=== PATIENT | male | born 1955 | race American Indian/Alaskan Native ===

== ENCOUNTER 2020-06-29 23:44 | Emergency (ER) | payer SELFPAY ==
[2020-06-30 00:02] VITALS: BP 180/106
--- NOTE | 2020-06-30 00:44 | XRay Report ---
CHEST 1 VIEW, 06/29/2020 11:32 PM CLINICAL INFORMATION/INDICATION: Chest pain COMPARISON: Chest radiograph, 04/26/2015 FINDINGS: SUPPORT DEVICES: None. HEART: There is stable mild enlargement of the cardiac silhouette LUNGS/PLEURA: Faint bilateral interstitial prominence is noted. No significant pleural effusion. ADDITIONAL FINDINGS: No additional acute findings. IMPRESSION: 1. Stable enlargement of the cardiac silhouette. 2. Chronic interstitial markings suggest mild pulmonary edema. Signer Name: Berenice Gu MD Signed: 06/30/2020 12:39 AM Workstation Name: [id number]
[2020-06-30 00:55] LABS: BUN/Creatinine Ratio 9; Blood Urea Nitrogen 15 mg/dL (9-20); Calcium 9.4 mg/dL (8.4-10.2); Hemolysis Index 2
[2020-06-30 00:56] LABS: Basophils % (Auto) 0.3 % (0.0-1.8); Eosinophils # (Auto) 0.3 K/mm3 (0.0-0.4); Hematocrit 42.3 % (35.5-45.6); Hemoglobin 13.7 gm/dl (11.8-15.2); Lymphocytes # (Auto) 1.9 K/mm3 (1.2-5.4); Lymphocytes % (Auto) 21.3 % (13.4-35.0); Mean Corpuscular HGB Conc 32 % (32-34); Mean Corpuscular Volume 78 fl (84-94); Monocytes # (Auto) 0.5 K/mm3 (0.0-0.8); Monocytes % (Auto) 5.9 % (0.0-7.3); Platelet Count 224 K/mm3 (140-440); Red Blood Count 5.44 M/mm3 (3.65-5.03); Red Cell Distribution Width 16.1 % (13.2-15.2)
== END 2020-06-30 00:15 | disposition left against medical advice (07) ==
LOC: ED 23:44
DX: R07.89 Other chest pain (principal); Z53.21 Procedure and treatment not carried out due to patient leaving prior to being seen by health care provider
CPT/HCPCS: 36415; 71045; 80048; 84484; 85025; 93005

== ENCOUNTER 2022-02-17 07:35 | Emergency (ER) | payer OTHER ==
[2022-02-17] MEDS ORDERED: MORPHINE 4 MG/1 ML INJ IV ONE (09:13)
[2022-02-17] MEDS ORDERED: ASPIRIN 81 MG TAB CHEW PO ONE (09:14)
--- NOTE | 2022-02-17 09:18 | Emergency Department Report ---
ED Chest Pain HPI - General Chief Complaint: Chest Pain Stated Complaint: CHEST AND ARM PAIN Time Seen by Provider: 02/17/22 08:58 Source: patient Mode of arrival: Ambulatory Limitations: No Limitations - History of Present Illness Initial Comments: 66 yo M with h/o HTn who present with chest pain around his left armpit and inner arm for the last 3 days progressively worsening. Initially thought it was gas and took some OTC gas medication with minimal improvement. pt denies any sob or palpitation. Taken a deep breath did not worsen pain. No fever or chills reported. He however reported that skin around the armpit is very sensitive. He drink about 1 bottle of beer per day. No other modifying or associated factors. Severity scale (0 -10): 10 - Related Data Home Medications Medication Instructions Recorded Confirmed Last Taken Lisinopril [Zestril TAB] 2.5 mg PO QDAY 02/17/22 02/17/22 02/16/22 Previous Rx's Medication Instructions Recorded Last Taken Type Famciclovir [Famvir] 500 mg PO Q8H 7 Days #14 tab NS 02/17/22 Unknown Rx Allergies Allergy/AdvReac Type Severity Reaction Status Date / Time Penicillins Allergy Hives Verified 02/17/22 07:49 Heart Score - HEART Score History: Slightly suspicious EKG: Non-specific Age: 45-65 Risk factors: 1-2 risk factors Troponin: < normal limit HEART Score: 3 - EKG Read Time Time EKG Completed: 07:52 EKG Read Time: 07:58 - Critical Actions Critical Actions: 0-3 pts:0.9-1.7%risk of adverse cardiac event.Candidate for discharge ED Review of Systems ROS: Stated complaint: CHEST AND ARM PAIN Other details as noted in HPI Comment: All other systems reviewed and negative Cardiovascular: chest pain Musculoskeletal: myalgia (left armpit area ) ED Past Medical Hx - Past Medical History Hx Hypertension: Yes - Social History Smoking Status: Current Some Day Smoker Substance Use Type: Alcohol - Medications Home Medications: Home Medications Medication Instructions Recorded Confirmed Last Taken Type Famciclovir [Famvir] 500 mg PO Q8H 7 Days #14 tab NS 02/17/22 Unknown Rx Lisinopril [Zestril TAB] 2.5 mg PO QDAY 08/06/22 08/06/22 08/05/22 History ED Physical Exam - General Limitations: No Limitations General appearance: alert, in no apparent distress - Head Head exam: Present: normal inspection - Eye Eye exam: Present: normal appearance Pupils: Present: normal accommodation - ENT ENT exam: Present: normal exam, normal orophraynx, mucous membranes moist - Neck Neck exam: Present: normal inspection, full ROM. Absent: tenderness - Respiratory Respiratory exam: Present: normal lung sounds bilaterally, other (tenderness to the inner left armpit and axillary chest wall ). Absent: respiratory distress, accessory muscle use - Cardiovascular Cardiovascular Exam: Present: regular rate, normal rhythm, normal heart sounds - GI/Abdominal GI/Abdominal exam: Present: soft, normal bowel sounds. Absent: distended, tenderness - Extremities Exam Extremities exam: Present: normal inspection, other (tenderness to the inner left armpit and axillary chest wall ) - Back Exam Back exam: Present: normal inspection, other (tenderness to the inner left armpit and axillary chest wall ) ED Course Vital Signs 02/17/22 02/17/22 02/17/22 07:46 08:39 08:45 Temperature 98 F Pulse Rate 76 71 78 Respiratory 18 18 16 Rate Blood Pressure 182/121 Blood Pressure 174/113 [Left] O2 Sat by Pulse 99 98 97 Oximetry 02/17/22 02/17/22 02/17/22 08:47 08:52 09:00 Temperature Pulse Rate 71 71 Respiratory 16 16 19 Rate Blood Pressure 188/120 181/118 Blood Pressure [Left] O2 Sat by Pulse 98 98 93 Oximetry 02/17/22 02/17/22 02/17/22 09:15 09:30 09:45 Temperature Pulse Rate 76 79 68 Respiratory 15 20 18 Rate Blood Pressure 181/118 170/122 186/113 Blood Pressure [Left] O2 Sat by Pulse 95 95 92 Oximetry 02/17/22 02/17/22 02/17/22 10:00 10:15 10:30 Temperature Pulse Rate 65 66 65 Respiratory 15 15 10 L Rate Blood Pressure 182/120 184/125 175/120 Blood Pressure [Left] O2 Sat by Pulse 93 90 93 Oximetry 02/17/22 10:45 Temperature Pulse Rate 63 Respiratory 12 Rate Blood Pressure 181/108 Blood Pressure [Left] O2 Sat by Pulse 92 Oximetry SCOT score - Scot Score Age > 65: (0) No Aspirin use within the Past 7 Days: (0) No 3 or more CAD Risk Factors: (0) No 2 or more Angina events in past 24 hrs: (0) No Known CAD with more than 50% Stenosis: (0) No Elevated Cardiac Markers: (0) No ST Deviation Greater than 0.5mm: (0) No SCOT Score: 0 ED Medical Decision Making - Lab Data Result diagrams: 02/17/22 09:25 02/17/22 09:25 - EKG Data -: EKG Interpreted by Me EKG shows normal: sinus rhythm - EKG Data 02/17/22 09:20 Noted with normal sinus rhythm at a rate of 73 bpm, with possible left ve ntricular hypertrophy but no appreciable ST depression on elevation in this abnormal ECG. - Medical Decision Making Here with chest pain with sensitive skin at the left armpit and inner axillary chest wall which raise concern for shingles but --differential could be but not limited to myocardial infarction, pulmonary embolism, costochondritis, anxiety, gastritis, GERD, pancreatitis, and or pyelonephritis--in order to rule out the above-- so will go ahead and order routine cardiopulmonary work-up that include troponin, EKG, chest x-ray, BNP, CKMB, and CBC, CMP and urinalysis for any correctable infectious process or electrolyte abnormality as a cause. In the meantime will give morphine 4 mg and aspirin 324 mg PO for symptomatic pain relief while waiting to rule out the dreadful etiology noted above-- Labs reviewed and noted to be within normal limit including the troponin-- pt reassured and d/c home on famciclovir 500 mg tid x 7 days Critical care attestation.: If time is entered above; I have spent that time in minutes in the direct care of this critically ill patient, excluding procedure time. ED Disposition Clinical Impression: Shingles (herpes zoster) polyneuropathy Chest pain Qualifiers: Chest pain type: unspecified Qualified Code(s): R07.9 - Chest pain, unspecified Disposition: 01 HOME / SELF CARE / HOMELESS Is pt being admited?: No Does the pt Need Aspirin: No Condition: Stable Instructions: Neuropathic Pain, Nonspecific Chest Pain, Adult, [id number] Additional Instructions: Please take your antiviral Famciclovir x 7 days Call or return to eD if your symptoms worsen Call and follow up with your doctor in the next 3-5 days Prescriptions: Famciclovir [Famvir] 500 mg PO Q8H 7 Days #14 tab NS Time of Disposition: 12:51
[2022-02-17 09:55] LABS: Hematocrit 41.7 % (35.5-45.6); Hemoglobin 13.2 gm/dl (11.8-15.2); Mean Corpuscular HGB Conc 32 % (32-34); Mean Corpuscular Volume 79 fl (84-94); Platelet Count 183 K/mm3 (140-440); Red Blood Count 5.26 M/mm3 (3.65-5.03); Red Cell Distribution Width 15.5 % (13.2-15.2)
[2022-02-17 10:01] LABS: Alanine Aminotransferase 13 units/L (7-56); BUN/Creatinine Ratio 16; Blood Urea Nitrogen 19 mg/dL (9-20); Calcium 8.7 mg/dL (8.4-10.2); Hemolysis Index 7
[2022-02-17 10:54] VITALS: BP 181/108
[2022-02-17 10:59] LABS: INR 0.94 (0.87-1.13)
[2022-02-17 11:00] LABS: Partial Thromboplastin Time 34.8 Sec. (24.2-36.6)
[2022-02-17 12:14] LABS: Total Cells Counted 100
[2022-02-17 12:15] LABS: Platelet Estimate Consistent w Auto; RBC Morphology Normal
--- NOTE | 2022-02-17 13:19 | XRay Report ---
CHEST 1 VIEW INDICATION: chest pain. COMPARISON: 06/30/2020 FINDINGS: Support devices: None. Heart: Stable Lungs/Pleura: No acute pulmonary or pleural findings. IMPRESSION: 1. No acute findings. Signer Name: Navneet Townsend MD Signed: 02/17/2022 1:15 PM Workstation Name: [id number]
--- NOTE | 2022-02-19 10:13 | Electrocardiograph Report ---
[facility] Test Date: 2022-02-17 Test Time: 07:52:52 Pat Name: KEN TAVARES Department: Room: Gender: M [facility]: [facility] : 1955 Requested By: QUINTON DREW Order Number: [id number] Reading MD: [facility] [place] Measurements Intervals [place] Rate: 73 P: 26 AK: 195 QRS: -52 QRSD: 93 T: 65 QT: 416 QTc: 457 Interpretive Statements Sinus rhythm Probable left atrial enlargement Left axis deviation Probable left ventricular hypertrophy No previous ECG available for comparison Electronically Signed On 02-19-2022 10:13:21 EDT by Med [place]
== END 2022-02-17 13:00 | disposition home or self-care (01) ==
LOC: ED 07:35
DX: R07.9 Chest pain, unspecified (principal); B02.9 Zoster without complications; G62.9 Polyneuropathy, unspecified; F17.200 Nicotine dependence, unspecified, uncomplicated; Z88.0 Allergy status to penicillin
CPT/HCPCS: 36415; 71045; 80053; 83690; 83880; 84484; 85007; 85025; 85610; 85730; 93005; 96360; 99284; J2270